=== PATIENT | male | born 1990 | race Hispanic/Latino ===

== ENCOUNTER 2018-05-07 17:36 | Emergency (ER) | payer OTHER ==
[2018-05-07] MEDS: Iohexol 240 (50 ml) PO ONE (19:16)
[2018-05-07] MEDS: Sodium Chloride 0.9% 1,000 ML IV STA (19:16)
[2018-05-07 19:20] LABS: BASO % 0.6 % (0.0-2.0); EOS % 0.6 % (0.0-4.0); HEMOGLOBIN 14.9 g/dL (12.0-18.0); LYMPH # 1.9 K/uL (1.0-4.3); LYMPH % 31.9 % (20.0-40.0); MEAN CELL VOLUME 92.2 fl (80.0-94.0); MEAN CORPUSCULAR HEMOGLOBIN 31.8 pg (27.0-31.0); MEAN CORPUSCULAR HGB CONC 34.5 g/dL (33.0-37.0); MEAN PLATELET VOLUME 8.3 fl (7.2-11.7); MONO # 0.3 K/uL (0.0-0.8); MONO % 5.4 % (0.0-10.0); NEUT # 3.6 K/uL (1.8-7.0); NEUT % 61.5 % (50.0-75.0); NRBC % 0.1 % (0.0-0.0); RBC 4.68 Mil/uL (4.40-5.90); RED CELL DISTRIBUTION WIDTH 12.4 % (11.5-14.5); WHITE BLOOD COUNT 5.9 K/uL (4.8-10.8)
[2018-05-07 19:32] LABS: ALB/GLOB RATIO 1.2 (1.0-2.1); ALBUMIN 4.5 g/dL (3.5-5.0); ALT/SGPT 27 U/L (21-72); AST/SGOT 26 U/L (17-59); BLOOD UREA NITROGEN 11 mg/dl (9-20); CALCIUM 9.8 mg/dL (8.4-10.2); GFR NON-AFRICAN AMERICAN > 60; LIPASE 105 U/L (23-300)
--- NOTE | 2018-05-07 19:53 | ED PDOC ---
HPI: Abdomen Time Seen by Provider: 05/07/18 18:39 Chief Complaint (Nursing): Abdominal Pain Chief Complaint (Provider): Abdominal Pain History Per: Patient History/Exam Limitations: no limitations Onset/Duration Of Symptoms: Days Current Symptoms Are (Timing): Still Present Additional Complaint(s): 27 y/o male with no significant PMHx presents to the ED for evaluation of abdominal pain, onset three days ago. Patient reports of severe abdominal pain that had woke him up from sleep on Monday evening. Patient states pain somewhat resolved on Monday but returned on Monday. Patient notes pain has been progressively worsening and is localized to the mid-abdomen. Patient reports is pain is non-radiating and describes the pain as "achy". Patient notes pain is associated with mild nausea and chills. Patient reports of taking GasX with no relief of pain. Patient notes of going to an Urgent Care for evaluation and was advised to come here for a CT. Of note, patient reports of having a dental implant surgery about two weeks ago and has since been taking amoxicillin. Otherwise, patient denies vomiting, diarrhea, fever and recent travel. PMD: NO PROVIDER Past Medical History Reviewed: Historical Data, Nursing Documentation, Vital Signs Vital Signs: Last Vital Signs Temp Pulse 88 05/07/18 18:22 Resp 18 05/07/18 18:22 BP 123/81 05/07/18 18:22 Pulse Ox 99 05/07/18 18:22 - Medical History PMH: No Chronic Diseases - Surgical History Other surgeries: DENTAL IMPLANT - Family History Family History: States: Other Other Family History: HYPERCHOLESTEROLEMIA (FATHER), COLON CA (GRANDMOTHER) - Social History Current smoker - smoking cessation education provided: No Alcohol: Social Drugs: Other (OCCASIONAL MARIJUANA SMOKER) - Home Medications Home Medications: Ambulatory Orders Medication Instructions Recorded Dicyclomine [Bentyl] 20 mg PO QID PRN #20 tab 05/07/18 Saccharomyces Boulardi [Florastor] 500 mg PO BID #28 cap 05/07/18 - Allergies Allergies/Adverse Reactions: Allergies Allergy/AdvReac Type Severity Reaction Status Date / Time No Known Allergies Allergy Verified 05/07/18 18:22 Review of Systems ROS Statement: Except As Marked, All Systems Reviewed And Found Negative ( PER HPI) Constitutional: Positive for: Chills. Negative for: Fever Gastrointestinal: Positive for: Nausea, Abdominal Pain. Negative for: Vomiting, Diarrhea Genitourinary Male: Negative for: Dysuria, Frequency, Hematuria Physical Exam - Reviewed Nursing Documentation Reviewed: Yes Vital Signs Reviewed: Yes - Physical Exam Appears: Positive for: Non-toxic, In Acute Distress (mild, painful distress) Head Exam: Positive for: ATRAUMATIC, NORMOCEPHALIC Skin: Positive for: Warm, Dry Eye Exam: Positive for: EOMI, PERRL ENT: Negative for: Pharyngeal Erythema, Tonsillar Exudate Neck: Positive for: Painless ROM, Supple Cardiovascular/Chest: Positive for: Regular Rate, Rhythm. Negative for: Murmur Respiratory: Positive for: Normal Breath Sounds. Negative for: Respiratory Distress Gastrointestinal/Abdominal: Positive for: Tenderness (to palpation of the periumbilical area. (-) McBurney's, Rachel'S). Negative for: Mass, Guarding, Rebound Back: Positive for: Normal Inspection. Negative for: L CVA Tenderness, R CVA Tenderness Extremity: Positive for: Normal ROM. Negative for: Deformity Lymphatic: Negative for: Adenopathy Neurologic/Psych: Positive for: Alert. Negative for: Motor/Sensory Deficits - Laboratory Results Result Diagrams: 05/07/18 19:00 05/07/18 19:00 Lab Results: Total Bilirubin 1.2 mg/dl (0.2-1.3) 05/07/18 19:00 AST 26 U/L (17-59) 05/07/18 19:00 ALT 27 U/L (21-72) 05/07/18 19:00 Alkaline Phosphatase 44 U/L (38-126) 05/07/18 19:00 Total Protein 8.2 G/DL (6.3-8.2) 05/07/18 19:00 Albumin 4.5 g/dL (3.5-5.0) 05/07/18:00 Globulin 3.8 gm/dL (2.2-3.9) 05/07/18 19:00 Albumin/Globulin Ratio 1.2 (1.0-2.1) 05/07/18 19:00 Lipase 105 U/L (23-300) 05/07/18 19:00 - ECG O2 Sat by Pulse Oximetry: 99 (RA) Pulse Ox Interpretation: Normal Medical Decision Making Medical Decision Making: Time: 1852 Impression: Abdominal Pain Differentials include but not limited to colitis, diverticulitis, enteritis, mesenteric adenitis and early appendicitis. Plan: -- CT Abd/Pelvis PO & IV Contrast -- CMP -- Lipase -- ED Urine Disptick -- CBC with differentials -- Sodium Chloride IV 100 mls/hr -- Iohexol 50 ml PO -- IV Insertion Labs with no emergently significant abnormalities Name: ANYI PYLE Exam Date: May 07, 2018 9:06:11 PM EST Modality Type: CT Description: CT - ABDOMEN AND PELVIS WITH CORONAL AND SAGITTAL MPRS Gender: M Laterality: Not applicable : 89 Referring Physician: Gavi Vallecillo EXAM: CT Abdomen and Pelvis with IV contrast CLINICAL HISTORY: Abd pain TECHNIQUE: Axial computed tomography images of the abdomen and pelvis with intravenous contrast. 244.18 mGy-cm CONTRAST: With; [id number] 90ML COMPARISON: None provided. FINDINGS: LUNG BASES: The lung bases appear clear. No pleural effusions are seen. LIVER: Unremarkable. GALLBLADDER AND BILE DUCTS: The gallbladder appears within normal limits. No radioopaque gallstones are seen. No biliary ductal dilatation is evident. PANCREAS: Unremarkable. SPLEEN: Unremarkable. ADRENAL GLANDS: Unremarkable. KIDNEYS, URETERS, AND BLADDER: The kidneys appear within normal limits. There is no hydronephrosis or hydroureter. No urinary calculi are seen. The urinary bladder appeared normal in size and configuration. STOMACH AND BOWEL: Unremarkable appearance of the stomach. No evidence of bowel obstruction. Abundant fecal material is present within the colon which may indicate some constipation. Thick walled fluid filled duodenum and loops of jejunum compatible with enteritis. Infectious and inflammatory etiologies are considered. Consider consultation with GI service. APPENDIX: No evidence of acute appendicitis on CT examination. PERITONEUM: No free fluid. No free air. LYMPH NODES: No lymphadenopathy is evident. REPRODUCTIVE: Unremarkable as visualized. VASCULATURE: No evidence of abdominal aortic aneurysm. BONES: No aggressive appearing osseous lesion. No acute osseous pathology evident. IMPRESSION: 1. Constipation. 2. Enteritis as above. Infectious and inflammatory etiologies are considered. Consider consultation with GI service. Electronically signed on May 07, 2018 9:44:25 PM EST by: Donn Strauss M.D., ZEHRA Certified By [facility] Fellowship Trained MRI and CT Specialist DW pt findings and plan of care. Followup with PMD or [facility] in 48 hours for reevaluation. Scribe Attestation: Documented by Larry Martínez, acting as a scribe for Gavi Vallecillo M.D Provider Scribe Attestation: All medical record entries made by the Scribe were at my direction and personally dictated by me. I have reviewed the chart and agree that the record accurately reflects my personal performance of the history, physical exam, medical decision making, and the department course for this patient. I have also personally directed, reviewed, and agree with the discharge instructions and disposition. Disposition - Clinical Impression Clinical Impression: Enteritis, Abdominal pain - Disposition Referrals: Curtis Denney [Outside] Disposition: Routine/Home Disposition Time: 22:02 Condition: STABLE Additional Instructions: DRINK PLENTY OF HYDRATING FLUIDS, STICK TO BLAND DIET, AND REST FOR THE NEXT 24- 48 HOURS FOLLOWUP WITH YOUR PMD OR [facility] IN 48 HOURS FOR REEVALUATION Prescriptions: Dicyclomine [Bentyl] 20 mg PO QID PRN #20 tab PRN Reason: abdominal pain Saccharomyces Boulardi [Florastor] 500 mg PO BID #28 cap Instructions: Acute Abdomen (Belly Pain), Adult (DC) Forms: [employer] (Romansh)
[2018-05-07] MEDS ORDERED: Sodium Chloride 0.9% 50 ML IV ONE (20:07)
[2018-05-07] MEDS ORDERED: Iohexol 300 100 ML IJ ONE (20:07)
[2018-05-07 22:22] VITALS: BP 127/79; PULSE 76; RESP 15; TEMP 98.3; O2SAT 100
--- NOTE | 2018-05-08 10:40 | CT ---
Date of service: 05/07/2018 PROCEDURE: CT Abdomen and Pelvis with contrast HISTORY: abdominal pain COMPARISON: None. TECHNIQUE: Intravenous contrast dose: 90 cc Omnipaque 300. Radiation dose: Total exam DLP = 244.58 mGy-cm. This CT exam was performed using one or more of the following dose reduction techniques: Automated exposure control, adjustment of the mA and/or kV according to patient size, and/or use of iterative reconstruction technique. FINDINGS: LOWER THORAX: Unremarkable. LIVER: Unremarkable. No gross lesion or ductal dilatation. GALLBLADDER AND BILE DUCTS: Unremarkable. PANCREAS: Unremarkable. No gross lesion or ductal dilatation. SPLEEN: Unremarkable. ADRENALS: Unremarkable. No mass. KIDNEYS AND URETERS: Unremarkable. No hydronephrosis. No solid mass. VASCULATURE: Unremarkable. No aortic aneurysm. No atherosclerotic calcification or mural plaque present. BOWEL: Constipation without fecal impaction or obstruction. APPENDIX: A normal appendix is visualized in it's entirety. PERITONEUM: Unremarkable. No free fluid. No free air. LYMPH NODES: Unremarkable. No enlarged lymph nodes. BLADDER: Unremarkable. REPRODUCTIVE: Unremarkable. BONES: No acute fracture. OTHER FINDINGS: None. IMPRESSION: No acute findings related to/ accounting for the clinical presentation. Additional benign and/or incidental findings described above. Concordant results (preliminary interpretation) provided by [employer]. Procedure Completed: 21:10. Preliminary Report: Interpreted and electronically signed: 21:44. Final Interpretation: 10:36. May 08, 2018
== END 2018-05-07 22:22 | disposition home or self-care (01) ==
LOC: H.ER 17:36
DX: K52.9 Noninfective gastroenteritis and colitis, unspecified (principal); K59.00 Constipation, unspecified
CPT/HCPCS: 74177; 80053; 83690; 85025; 99283; J7030; Q9966; Q9967